=== PATIENT | male | born 1980 | race Caucasian/White ===

== ENCOUNTER 2018-03-25 13:10 | Emergency (ER) | payer SELFPAY ==
[~2018-03-25] VITALS: Ht 193 cm; Wt 106.6 kg
[2018-03-25 15:07] LABS: BASOPHILS % 0.4 % (0.0-1.0); EOSINOPHILS # (AUTO) 0.6 (0.0-0.4); EOSINOPHILS % 5.5 % (0.0-6.0); HEMATOCRIT 46.1 % (38.2-49.6); HEMOGLOBIN 15.6 g/dL (14.0-18.0); LYMPHOCYTES # (AUTO) 1.7 (1.0-3.2); LYMPHOCYTES % 16.6 % (18.0-39.1); MEAN CORPUSCULAR HEMOGLOBIN 30.9 pg (28-32); MEAN CORPUSCULAR HGB CONC 33.8 g/dL (31-35); MEAN CORPUSCULAR VOLUME 91.3 fL (81-99); MONOCYTES # (AUTO) 1.3 (0.2-0.8); NEUTROPHILS # (AUTO) 6.8 (2.1-6.9); NEUTROPHILS % 65.2 % (38.7-80.0); PLATELET COUNT 326 x10e3/uL (140-360); RED BLOOD COUNT 5.05 x10e6/uL (4.3-5.7); RED CELL DISTRIBUTION WIDTH 12.5 % (11.7-14.4)
[2018-03-25 15:19] LABS: ALANINE AMINOTRANSFERASE 11 IU/L (0-55); ALBUMIN 3.9 g/dL (3.5-5.0); ALKALINE PHOSPHATASE 110 IU/L (40-150); ANION GAP 11.9 mmol/L (8-16); BLOOD UREA NITROGEN 17 mg/dL (7-26); BUN/CREATININE RATIO 14 (6-25); CALCIUM 9.9 mg/dL (8.4-10.2); CARBON DIOXIDE 26 mmol/L (22-29); CHLORIDE 105 mmol/L (98-107); CREATININE, SERUM 1.18 mg/dL (0.72-1.25); EST GLOMERULAR FILTRATION RATE > 60 ML/MIN (60-); GLUCOSE 82 mg/dL (74-118); POTASSIUM 3.9 mmol/L (3.5-5.1); SODIUM 139 mmol/L (136-145)
[2018-03-25 16:15] VITALS: BP 114/77
== END 2018-03-25 16:22 | disposition home or self-care (01) ==
LOC: ER 13:10
DX: L03.116 Cellulitis of left lower limb (principal); L03.115 Cellulitis of right lower limb
CPT/HCPCS: 36415; 80053; 85025; 99283

== ENCOUNTER 2024-10-05 02:51 | Emergency (ER) | payer OTHER ==
[~2024-10-05] VITALS: Ht 193 cm; Wt 106.6 kg
[2024-10-05] MEDS: LIDOCAINE HCL 1% LOCAL INJ 20 ML VIAL INJ ONE (03:56)
[2024-10-05] MEDS: AZITHROMYCIN 250 MG TAB PO ONE (03:57)
[2024-10-05] MEDS: CEFTRIAXONE 500 MG VIAL IM ONE (03:57)
[2024-10-05 04:30] VITALS: PULSE 74; RESP 18; TEMP 98.3; O2SAT 98
== END 2024-10-05 04:29 | disposition home or self-care (01) ==
LOC: FSED 03:00
DX: R30.0 Dysuria (principal); A64 Unspecified sexually transmitted disease; F17.210 Nicotine dependence, cigarettes, uncomplicated
CPT/HCPCS: 99283